=== PATIENT | male | born 1965 | race Caucasian/White ===

== ENCOUNTER 2017-01-12 11:12 | Inpatient (IN) | payer OTHER ==
[~2017-01-12] VITALS: Ht 177.8 cm; Wt 113.9 kg
[2017-01-12] VITALS (8 sets, daily range): BP systolic 148–160; BP diastolic 77–110
[~2017-01-12 11:12] MED LIST: METFORMIN HCL500 M3 PO; METHADONE HCL5 MG PO; NICOTINE LOZENGE4 MG PO; XANAX0.5 M1 PO
--- NOTE | 2017-01-12 11:28 | ED PSYCHIATRIC COMPLAINT ---
See Addendum History of Present Illness General Chief Complaint: ETOH/Drug Related Complaint Stated Complaint: ETOH,DEPRESSED Source: patient, old records Exam Limitations: no limitations Vital Signs & Intake/Output Vital Signs & Intake/Output Vital Signs Date Time Temp Pulse Resp B/P Pulse O2 O2 Flow FiO2 Ox Delivery Rate 01/13 0904 74 140/78 01/13 0609 97.9 66 20 142/70 93 01/13 0600 97.9 66 18 142/70 01/13 0404 97.2 61 20 140/100 94 01/13 0400 97.2 61 18 140/100 01/13 0230 97.9 69 18 140/87 01/13 0201 97.9 69 20 140/87 92 Room Air 01/13 0200 97.9 69 18 140/87 01/13 0157 150/98 01/13 0000 98.5 68 18 160/98 01/12 2356 98.5 68 20 160/98 94 01/12 2246 97.8 88 20 150/110 94 Room Air 01/12 2200 97.7 92 18 150/110 01/12 2130 97.7 92 20 158/90 01/12 2115 97.7 92 20 158/90 96 Room Air 01/12 1919 97.5 84 20 160/80 01/12 1919 97.5 84 20 160/80 95 Room Air 01/12 1718 98.8 93 18 160/98 01/12 1718 98.8 93 18 160/98 95 Room Air 01/12 1505 98.8 78 18 149/96 95 Room Air 01/12 1504 98.8 78 18 149/96 01/12 1314 98.8 88 18 148/77 01/12 1313 98.6 88 18 148/77 95 Room Air 01/12 1124 97.0 90 20 163/97 94 Room Air ED Intake and Output 01/13 0000 01/12 1200 Intake Total 120 Output Total Balance 120 Intake, Oral 120 Patient 252 lb 280 lb Weight Allergies Coded Allergies: NO KNOWN ALLERGIES (06/04/12) Triage Note: PT REQUESTS DETOX FROM ETOH AND STATES HE IS VERY DEPRESSED. PT DENIES SI/HI. PT STATES HE IS IN A BAD WAY, CAN'T SLEEP AND IS HAVING PANIC ATTACKS. STATES DRINKING A FIFTH OF [place] A DAY Triage Nurses Notes Reviewed? yes Onset: Gradual Duration: worse persistent since (2.5 month) Timing: recent history Severity: severe Severity Numbers: 10 Associated Symptoms: anxiety, impaired concentration, insomnia HPI: Patient is a 51-year-old male with history of alcohol abuse presenting to the emergency department with chief complaint of increasing depression, increasing alcohol use in the past 2 months. He reports prior to the past 2 and half months he was clean for 13 months. He wants detox again in to get back on track. He was going to Employee Benefit Plans meetings but slowly stopped and started drinking heavily. Denies any suicidal or homicidal ideation. He does report increased anxiety where he wakes up in the night and paces. If he doesn't drink alcohol daily he gets anxious and tremulous. He is to drink as soon as he wakes up in the morning to function. He drinks about a fifth of hard alcohol daily now. It started off with just a few beers here and there and has gotten to this point. He would like help. He feels like he is feeling his family members. Remote history of withdrawal seizure 10 years ago. The last time he was admitted for alcohol detox was approximately 2 years ago. He also reports that he stopped taking his Paxil about 2-1/2 months ago and noticed increased depression since then. Denies any hallucinations. Denies any drug use besides alcohol. He reports that his depression has gotten so bad that he stopped grooming himself and is unable to perform activities of daily living over the past week or so. (FELISHA BOBBY,CHASIDY) Reconcile Medications Alprazolam (Xanax) 0.5 MG TABLET 1 TAB PO BID PRN ANXIETY (Reported) Amlodipine Besylate 5 MG TABLET 1 TAB PO DAILY HTN (Reported) Lisinopril 40 MG TABLET 1 TAB PO DAILY BP (Reported) Metformin HCl 500 MG TABLET 1 TAB PO BID DM (Reported) Methadone HCl (Unknown Strength) TABLET (Unknown Dose) PO DAILY MENTAL HEALTH (Reported) Nicotine Polacrilex (Nicotine Lozenge) 4 MG LOZENGE 1 RENÉ PO AD PRN SMOKING CESSATION (Reported) Pantoprazole Sodium 40 MG TABLET.DR 1 TAB PO DAILY GERD (Reported) Paroxetine HCl (Paxil) 40 MG TABLET 1 TAB PO DAILY DEPRESSION (Reported) (JORDAN MIRANDA,BEBETO) Past History Travel History Traveled to [place] past 21 day No Medical History Any Pertinent Medical History? see below for history Cardiovascular: hypertension Endocrine: diabetes History of MRSA: No History of VRE: No History of CDIFF: No Surgical History Surgical History: non-contributory Psychosocial History What is your primary language Panamanian Tobacco Use: Current Daily Use Daily Tobacco Use Amount/Type: => 5 Cigarettes daily ETOH Use: heavy use Illicit Drug Use: denies illicit drug use Family History Hx Contributory? No (CHASIDY BAUTISTA) Review of Systems Review of Systems Constitutional: Reports: malaise. Comments Review of systems: See HPI, All other systems negative. Constitutional, no chills fever or weight loss HEENT: No visual changes no sore throat no congestion Cardiovascular: No chest pain ,palpitation Skin, no jaundice no rashes Respiratory: No dyspnea cough sputum or hemoptysis GI: No nausea no vomiting : No dysuria No hematuria Muscle skeletal: no back pain, no neck pain, Neurologic: No numbness no confusion, no headaches Psych: Positive stress, anxiety and depression Heme/endocrine: No bruising no bleeding no polyuria or polydipsia Immunology: No splenectomy or history of AIDS (CHASIDY BAUTISTA) Physical Exam Physical Exam General Appearance: well developed/nourished, no apparent distress, alert, awake , comfortable Neurological/Psychiatric: oriented x 3 Comments: Well-developed well-nourished person in no acute distress HEENT: Pupils equally round and reactive to light and accommodation. Nose is atraumatic. Neck: Normal inspection Back: Nontender Cardiovascular: Regular rate and rhythms no murmurs rubs or gallops, normal JVP Respiratory: Chest nontender. No respiratory distress.breath sounds clear to auscultation bilaterally Abdomen: Obese Extremity: No edema Neuro: Alert oriented x3 Skin: No appreciable rash on exposed skin, skin is warm and dry. Psych: Depressed mood, cooperative SAD PERSONS Done? patient not suicidal (CHASIDY BAUTISTA) Progress Differential Diagnosis: drug intoxication, polysubstance abuse, alcohol abuse, liver failure, major depressive disorder Plan of Care: Orders Procedure Date/time Status Regular Diet 01/13 B Active US-COMPLETE ABDOMEN 01/13 0800 Active XRY-CHEST XRAY, PA AND LATERAL 01/13 0800 Active LOWER RESPIRATORY CULTURE 01/13 0700 Active MAGNESIUM 01/13 0600 Complete HEPATIC FUNCTION PANEL 01/13 06 Complete CBC WITHOUT DIFFERENTIAL 01/13 0600 Complete BASIC ELECTROLYTES PLUS BUN&CR 01/13 0600 Complete Seizure Precautions 01/13 UNK Active Consistent Carbohydrate 1 01/12 D Complete CULTURE,URINE 01/12 2338 Active URINALYSIS 01/12 2338 Complete Pathway - chart 01/12 2301 Active Pathway - chart 01/12 2300 Active House Staff 01/12 2300 Active Patient Data 01/12 2300 Active Code Status 01/12 2300 Active Lab Add-on Test 01/12 2258 Active Vital Signs 01/12 2227 Active Teach/Educate 01/12 2227 Active Nutritional Intake, Monitor 01/12 2227 Active Isolation 01/12 2227 Active Intake & Output 01/12 2227 Active Patient Care Conference 01/12 2227 Active Activity/Ambulation 01/12 2227 Active Saline Lock 01/12 2012 Active Misc Message 01/12 2012 Active ED Holding Orders 01/12 2012 Active Vital Signs 01/12 2012 Active Code Status 01/12 2012 Complete Admit to inpatient 01/12 2011 Active Patient Data 01/12 1941 Active Intake & Output 01/12 1315 Active ED CRISIS PSYCH CONSULT 01/12 1230 Active PHOSPHORUS 01/12 1203 Complete MAGNESIUM 01/12 1203 Complete CIWA 01/12 1146 Active URINE DRUG SCREEN FOR ER ONLY 01/12 1128 Complete TSH REFLEX 01/12 1128 Complete ETHANOL 01/12 1128 Complete COMPREHENSIVE METABOLIC PANEL 01/12 1128 Complete CBC WITHOUT DIFFERENTIAL 01/12 1128 Complete VTE Mechanical Prophylaxis 01/12 UNK Active FingerStick- Glucose 01/12 UNK Active Current Medications Sig/Marshall Start time Last Medication Dose Stop Time Status Admin Insulin Aspart 0 TIDAC 01/13 0800 AC (NovoLOG) Sodium Chloride 1,000 ML Q10H 01/13 0145 AC (Normal Saline 0.9%) Laboratory Tests 01/13/17 0705: Anion Gap 11, Estimated GFR > 60, BUN/Creatinine Ratio 25.0, Magnesium 1.9, Total Bilirubin 0.9, Direct Bilirubin 0.4, AST 68 H, ALT 69, Alkaline Phosphatase 55, Total Protein 7.1, Albumin 4.0, CBC w Diff NO MAN DIFF REQ, RBC 3.98 L, MCV 92.0, MCH 31.5 H, RDW 13.9, MPV 9.1, Gran % 54.9, Lymphocytes % 33.0, Monocytes % 9.0, Eosinophils % 2.7, Basophils % 0.4, Absolute Granulocytes 2.1, Absolute Lymphocytes 1.3, Absolute Monocytes 0.3, Absolute Eosinophils 0.1, Absolute Basophils 0, PUBS MCHC 34.2 01/12/17 1203: Anion Gap 16, Estimated GFR > 60, BUN/Creatinine Ratio 21.3, Glucose 125 H, Calcium 10.0, Phosphorus 4.3, Magnesium 1.5 L, Total Bilirubin 0.5, AST 74 H, ALT 76 H, Alkaline Phosphatase 60, Total Protein 8.3 H, Albumin 4.8, Globulin 3.5, Albumin/Globulin Ratio 1.4, TSH &T3 &Free T4 Intrp 2.530, CBC w Diff NO MAN DIFF REQ, RBC 4.47 L, MCV 91.9, MCH 31.2 H, RDW 13.6, MPV 8.5, Gran % 60.4, Lymphocytes % 30.8, Monocytes % 7.2, Eosinophils % 1.2, Basophils % 0.4, Absolute Granulocytes 3.6, Absolute Lymphocytes 1.8, Absolute Monocytes 0.4, Absolute Eosinophils 0.1, Absolute Basophils 0, PUBS MCHC 33.9, Serum Alcohol 157.0 01/12/17 1153: Urine Opiates Screen < 100.00, Methadone Screen > 735 H, Barbiturate Screen < 60, Ur Phencyclidine Scrn < 6.00, Amphetamines Screen < 100, U Benzodiazepines Scrn 94, Urine Cocaine Screen < 50, Urine Cannabis Screen < 5.00, Urine Color STRAW, Urine Clarity CLEAR, Urine pH 6.0, Ur Specific [place] <= 1.005, Urine Protein NEG, Urine Ketones NEG, Urine Nitrite NEG, Urine Bilirubin NEG, Urine Urobilinogen 0.2, Ur Leukocyte Esterase NEG, Ur Microscopic EXAM NOT REQUIRED, Urine Hemoglobin NEG, Urine Glucose NEG Microbiology 01/13 0700 LOWER RESP: Respiratory Culture - ORD 01/13 0700 LOWER RESP: Gram Stain - ORD 01/12 115 URINE ROUT: Urine Culture - RECD Comments: Patient will be set up for outpatient treatment for depression. Patient will be admitted for alcohol detox/withdrawal. Patient scored a CIWA score of 11 most recently. Requiring multiple doses of by mouth Ativan. Patient meets criteria for inpatient detox secondary to history of withdrawal seizures. (FELISHA BOBBY,CHASIDY) Departure Departure Time of Disposition: 1932 Disposition: STILL A PATIENT Condition: Stable Clinical Impression Primary Impression: Alcohol withdrawal Qualifiers: Complication of substance-induced condition: uncomplicated Qualified Code: F10.230 - Alcohol dependence with withdrawal, uncomplicated Referrals: SIOMARA RUSH DO (PCP/Family) Departure Forms: Customer Survey General Discharge Information Admission Note Spoke With: NIK GILLESPIE MD Documentation of Exam: Documentation of any treatments & extenuating circumstances including Concerns Regarding Discharge (functional status, medication knowledge or non-compliance, living conditions, etc.) that warrant an admission rather than observation: Patient requiring several doses of by mouth Ativan, CIWA score,HX OF withdrawal seizures meets criteria according to detox protocol for medical admission. Discharge at this time would likely be harmful, could LEAD TO withdrawal seizures. (CHASIDY BAUTISTA) PA/CHANNELER OUTSOLE Co-Sign Statement Statement: ED Attending supervision documentation- [x] I saw and evaluated the patient. I have also reviewed all the pertinent lab results and diagnostic results. I agree with the findings and the plan of care as documented in the PA's/CHANNELER OUTSOLE's documentation. [x] I have reviewed the ED Record and agree with the PA's/CHANNELER OUTSOLE's documentation. [] Additions or exceptions (if any) to the PAs/CHANNELER OUTSOLE's note and plan are summarized below: [] (JORDAN MIRANDA,BEBETO) Critical Care Note Critical Care Note Critical Care Time: 30-74 min (CHASIDY BAUTISTA)
[2017-01-12 12:15] LABS: ABSOLUTE BASOPHIL COUNT 0 /CUMM (0.0-0.2); ABSOLUTE EOSINOPHIL COUNT 0.1 /CUMM (0.0-0.7); ABSOLUTE GRANULOCYTE CT 3.6 /CUMM (1.4-6.5); ABSOLUTE LYMPH COUNT 1.8 /CUMM (1.2-3.4); ABSOLUTE MONOCYTE COUNT 0.4 /CUMM (0.10-0.60); BASOPHIL % 0.4 % (0.0-2.0); EOSINOPHIL % 1.2 % (0-5); GRANULOCYTE % 60.4 % (42.2-75.2); HEMATOCRIT 41.1 % (42-52); MEAN CORPUSCULAR HGB 31.2 PG (27.0-31.0); MEAN CORPUSCULAR HGB CONC 33.9 G/DL (33.0-37.0); MEAN CORPUSCULAR VOLUME 91.9 FL (80.0-94.0); MEAN PLATELET VOLUME 8.5 FL (7.4-10.4); PLATELET COUNT 151 /CUMM (130-400); RBC DISTRIBUTION WIDTH 13.6 % (11.5-14.5); RED BLOOD CELL CT 4.47 /CUMM (4.70-6.10); WHITE BLOOD CELL COUNT 5.9 /CUMM (4.8-10.8)
[2017-01-12] MEDS ORDERED: LISINOPRIL40 M1 PO (13:17)
[2017-01-12] MEDS ORDERED: PAXIL40 M1 PO (13:17)
[2017-01-12] MEDS ORDERED: PANTOPRAZOLE SO40 M1 PO (13:18)
--- NOTE | 2017-01-12 19:29 | ED PSYCH CRISIS CONSULTATION ---
Crisis Consult Basic Assessment Date of Consult: 01/12/17 Responsible Person/Accompanied By: Brought in by cousin. Lives w/ 21 yo son. Insurance Authorization: Insurance #1: Insurance name: ALEXANDRA FLYNN Phone number: Policy number: [id number] Group number: [id number] Authorization number: ED Provider: Patient's ED Provider: CHASIDY BAUTISTA Primary Care Physician: Patient's PCP: SIOMARA RUSH DO PCP's Current Psychiatrist: Carolyn Mathis MD Chief Complaint: Alcohol Use Disorder / Depression Patient's Quote: "Stopped taking my medication 2 monthsago...Drink a 1/5 a day. " Present Illness: Patient is a 51 year old male who presents with recent increase in alcohol use and long standing concerns of depression / anxiety. 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 Patient resides with his 21 y/o son. Patient reports he achieved sobriety after an inpatient psychiatric admission in 2013 - patient discharged from [facility] sucessfully and maintained by attending AA meetings w/ a sponsor. Patient also was motivated to maintain sobriety during the course of treatment for his hepatitis C infection with [facility] ([employer] Dr. Harpal Munguia) - pt. reports he is cured. Patient reports one seizure from alcohol withdrawal ~13 years ago. Patient relapsed ~ 2 1/2 months ago and cites the "holidays" and thoughts of his as triggers to relapse. Patient denies ever being treated with traditional psychotherapy or counseling after the sudden of his . Patient was incarcerated ~13 years ago. Patient reports drinking as much as 750 mL of alcohol per day. Patient urine toxicology screen reviewed - positive for methadone which is prescribed and administered by [facility] in [place], [place]. Patient is also prescribed Xanax for anxiety by Dr. Mathis. Pt. reports on a scale of 1-10 his depression is ~9. Pt. states anxiety is "through the roof." Patient denies any high risk factors (suicidal ideation, homicidal ideation, psychosis). Patient presents alert, euthymic, and oriented. He was observed to be sweating and reports a feeling of fullness in his abdomen. Patient identified positive supports including his son, a cousin, and extended family. Patient is currently an active patient of psychiatrist Dr. Mathis. Pt. does not meet criteria for an inpatient psychiatric admission. Spoke to patient's son, Noble Dash Jr. . Jr. Noble states the patient "needs help and I want him to get better." Noble reports the patient is depressed at times, but he does not have any concerns that the patient is suicidal. Noble Long reports the patient drinks every day and has increased the volume of his drinking since being laid off. Jr. Noble states that "he hopes his father gets the help he needs." Patient's Address: [address] [place] [address] Other Phone Number: Who Do You Live With? Son Family/Informants Interviewed: Son - Noble Dash Jr. [phone] ( [phone] 3 [phone] 4 4 [phone] 3 [phone] 6 Resides with patient. Allergies - Coded Allergies: NO KNOWN ALLERGIES (06/04/12) Current Medications - Scheduled Medications Lisinopril 40 MG TABLET 1 TAB PO DAILY BP (Reported) Entered as Reported by ALMITA GREENE on 01/12/17 1317 Metformin HCl 500 MG TABLET 1 TAB PO BID DM (Reported) Entered as Reported by JINA ZAMBRANO on 08/14/14 1614 Methadone HCl (Unknown Strength) TABLET (Unknown Dose) PO DAILY MENTAL HEALTH (Reported) Entered as Reported by JINA ZAMBRANO on 08/14/14 1617 Pantoprazole Sodium 40 MG TABLET.DR 1 TAB PO DAILY GERD (Reported) Entered as Reported by ALMITA GREENE on 01/12/17 1318 Paroxetine HCl (Paxil) 40 MG TABLET 1 TAB PO DAILY DEPRESSION (Reported) Entered as Reported by ALMITA GREENE on 01/12/17 1317 Scheduled PRN Medications Alprazolam (Xanax) 0.5 MG TABLET 1 TAB PO BID PRN ANXIETY (Reported) Entered as Reported by JINA ZAMBRANO on 08/14/14 1617 Nicotine Polacrilex (Nicotine Lozenge) 4 MG LOZENGE 1 RENÉ PO AD PRN SMOKING CESSATION (Reported) Entered as Reported by JINA ZAMBRANO on 08/14/14 1616 Laboratory Results: Laboratory Tests 01/12/17 1203: Anion Gap 16, Estimated GFR > 60, BUN/Creatinine Ratio 21.3, Glucose 125 H, Calcium 10.0, Total Bilirubin 0.5, AST 74 H, ALT 76 H, Alkaline Phosphatase 60 , Total Protein 8.3 H, Albumin 4.8, Globulin 3.5, Albumin/Globulin Ratio 1.4, TSH &T3 &Free T4 Intrp 2.530, CBC w Diff NO MAN DIFF REQ, RBC 4.47 L, MCV 91.9, MCH 31.2 H, RDW 13.6, MPV 8.5, Gran % 60.4, Lymphocytes % 30.8, Monocytes % 7.2 , Eosinophils % 1.2, Basophils % 0.4, Absolute Granulocytes 3.6, Absolute Lymphocytes 1.8, Absolute Monocytes 0.4, Absolute Eosinophils 0.1, Absolute Basophils 0, PUBS MCHC 33.9, Serum Alcohol 157.0 01/12/17 1153: Urine Opiates Screen < 100.00, Methadone Screen > 735 H, Barbiturate Screen < 60, Ur Phencyclidine Scrn < 6.00, Amphetamines Screen < 100, U Benzodiazepines Scrn 94, Urine Cocaine Screen < 50, Urine Cannabis Screen < 5.00 Past History Past Medical History Any Pertinent Medical History? 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 Patient has recent sobriety and is knowledgable on strategies to abstain from alcohol. Patient is motivated to engage in treatment. Physical Limitations (Interventions): None indicated. Psychiatric Treatment History Psych Treatment Psychiatric Treatment Yes Inpatient Treatment Yes Outpatient Treatment Yes Location of Treatment [facility] - inpatient and IOP Reason for Treatment Alcohol use disorder Dates of Treatment 2014 Response to Treatment Positive Diagnosis by History: Alcohol dependence, Alcohol withdrawal, Opioid dependence, Anxiety disorder, Hepatitis C Substance Use/Abuse History Drug Use/Abuse Substances Used/Abused Yes Substance Used/Abused Heroin First Use ~20 years ago per patient report Last Used ~13 years ago How much used/taken Unspecified How often Unknown For how long 7 years Route of use Intravenous Substance Abuse Treatment Substance Abuse Treatment Past Substance Abuse [place] No Inpatient Treatment No Outpatient Treatment No Location of Treatment Patient denies Reason for Treatment Patient denies Dates of Treatment Patient denies Response to Treatment Patient denies Comments: - Current Mental Status Mental Status Orientation: Person, Place, Situation Affect: WNL Speech: WNL Neuro-vegetative: Loss of Interest, Sleep Disturbance Appearance Appearance- Dress/Hygiene: Patient dressed in hospital attire, appears well groomed, with only remarkable feature being a visible tattoo on left arm. Behaviors Thought Process: WNL Thought Content: WNL Memory: WNL Insight: WNL SI/HI Risk Assessment Past Suicidal Ideation/Attempts No (Patient denies) Current Suicidal Ideation/Att No (Patient denies.) Past Homicidal Ideation/Att: No (Patient denies) Current Homicidal Ideation/Attempts No (Patient denies. ) Degree of Intent: None (Patient denies) Danger To: Not indicated Gravely Disabled: Not indicated Risk Factors: high anxiety/distress, substance abuse, poor impulse control, male Lethality Ratin (mild) PTSD Checklist PTSD Done? patient declined ED Management Sitter: Yes Restraints: No DSM5/PS Stressors/Medical Prob Diagnosis' (DSM 5, Stressors, Medical): F10.20 Alcohol use disorder, Severe F32.9 Unspecified depressive disorder F41.9 Unspecified anxiety disorder Current GAF: 40 Comments: Recent unemployment Departure Disposition Psych Medical Clearance Date: 01/12/17 Medically Cleared at: 1830 Time Started: 1829 Time Ended: 1929 Psychiatrist Consulted: Dom Schneider MD PHD Date Disposition Established: 01/12/17 Time Disposition Established: 1929 Plan for Disposition - Modality: Attending in ED will determine medical disposition Facility: Patient to Arrange Rationale for Disposition: Patient is cleared for discharge. Attending PA will determine medical disposition. If patient is discharged from ED, he is advised to follow-up with a local detox facility or outpatient susbtance use program. Patient crisis evaluation reviewed with on-call psychiatrist Dr. Schneider. Patient does not meet criteria at this time for a psychiatric inpatient admission. Referrals SIOMARA RUSH DO (PCP/Family)
--- NOTE | 2017-01-12 19:54 | History & Physical ---
HIEN MIRANDA,[facility] 01/12/171953: General Information and HPI MD Statement: I have seen and personally examined ERICK DASH SR and documented this H& P. The patient is a 51 year old M who presented with a patient stated chief complaint of alcohol abuse. Source of Information: patient, family, old records Exam Limitations: no limitations History of Present Illness: 51 M PMH EtOH abuse, IVDU on methadone, NIDDM, HCV+ (recently completed [facility] treatment) and anxiety who presented to the emergency department [facility] requesting help with alcohol detoxification. The patient has an extensive alcohol use however has abstained from alcohol for approximately 13 months. The patient recently started drinking alcohol again (approximately 3 months ago) . Patient consumes approximately 30 nips of Luis Fernando Beam on a daily basis. Patient also reports abdominal distention and significant weight gain. He also reports that failure to have alcohol on daily basis elicits severe withdrawal effects, where by he becomes diaphoretic and experiences bilatteral upper extremity tremors. His last alcoholic drink was on 01/12/2017. The patient does also report of a history of previous seizures related to alcohol withdrawal. Owing to the decrease compliance of his Paxil (due to interactions with Alcohol) . The patient has continued to get more more depressed and states that his activities of daily living have been affected. 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 Patient denies any suicidal and/or homicidal ideation. He lives at home and endorses good support network. Allergies/Medications Allergies: Coded Allergies: NO KNOWN ALLERGIES (06/04/12) Compliance With Home Meds: UNKNOWN Past History Travel History Traveled to [place] past 21 day No Medical History Cardiovascular: hypertension Endocrine: diabetes History of MRSA: No History of VRE: No History of CDIFF: No Surgical History Surgical History: non-contributory Past Family/Social History Psychosocial History Where do you live? Home Who Do You Live With? spouse Services at Home: None Primary Language: Lao Smoking Status: Current Some Day Smoker ETOH Use: heavy use Illicit Drug Use: denies illicit drug use Functional Ability ADLs Independent: dressing, eating, toileting, bathing. Ambulation: independent IADLs Independent: shopping, housework, finances, food prep, telephone, transportation , medication admin. 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 Cardiovascular: Denies: chest pain, edema, orthopena. Respiratory: Reports: cough, sputum production (Gre). Denies: hemoptysis, orthopnea, short of breath. GI: Reports: abdominal pain, bloating, distention. Denies: constipation, diarrhea, bowel incontinence. Genitourinary: Reports: frequency (Polyuria). Denies: discharge, dysuria, hematuria. Musculoskeletal: Denies: back pain, gout, joint pain, joint swelling. Neurological/Psychological: Reports: anxiety, depressed, tremors. Denies: dementia, emotional problems. Exam & Diagnostic Data Last 24 Hrs of Vital Signs/I&O Vital Signs Date Time Temp Pulse Resp B/P Pulse O2 O2 Flow FiO2 Ox Delivery Rate 01/12 2246 97.8 88 20 150/110 94 Room Air 01/12 2200 97.7 92 18 150/110 01/12 2130 97.7 92 20 158/90 01/12 2115 97.7 92 20 158/90 96 Room Air 01/12 1919 97.5 84 20 160/80 01/12 1919 97.5 84 20 160/80 95 Room Air 01/12 1718 98.8 93 18 160/98 01/12 1718 98.8 93 18 160/98 95 Room Air 01/12 1505 98.8 78 18 149/96 95 Room Air 01/12 1504 98.8 78 18 149/96 01/12 1314 98.8 88 18 148/77 01/12 1313 98.6 88 18 148/77 95 Room Air 01/12 1124 97.0 90 20 163/97 94 Room Air Intake & Output 01/12 1600 01/12 0800 01/12 0000 Intake Total Output Total Balance Patient 127.006 kg Weight Physical Exam General Appearance Alert, Oriented X3, Cooperative HEENT Atraumatic, PERRLA, Bronze discolorated Skin Neck Supple Lymphatic Cervical nl Cardiovascular Regular Rate, Normal S1, Normal S2, No Murmurs Lungs Increased Expiratory Breath Sounds Abdomen Normal Bowel Sounds, Soft, No Tenderness, Distended, Spider Anigomas Present , Gynecomastia Neurological Normal Speech, Strength at 5/5 X4 Ext, Normal Tone, Cranial Nerves 3-12 NL Extremities Edema 2+ Last 24 Hrs of Labs/Diallo: Laboratory Tests 01/12/17 1203: Anion Gap 16, Estimated GFR > 60, BUN/Creatinine Ratio 21.3, Glucose 125 H, Calcium 10.0, Phosphorus 4.3, Magnesium 1.5 L, Total Bilirubin 0.5, AST 74 H, ALT 76 H, Alkaline Phosphatase 60, Total Protein 8.3 H, Albumin 4.8, Globulin 3.5, Albumin/Globulin Ratio 1.4, TSH &T3 &Free T4 Intrp 2.530, CBC w Diff NO MAN DIFF REQ, RBC 4.47 L, MCV 91.9, MCH 31.2 H, RDW 13.6, MPV 8.5, Gran % 60.4, Lymphocytes % 30.8, Monocytes % 7.2, Eosinophils % 1.2, Basophils % 0.4, Absolute Granulocytes 3.6, Absolute Lymphocytes 1.8, Absolute Monocytes 0.4, Absolute Eosinophils 0.1, Absolute Basophils 0, PUBS MCHC 33.9, Serum Alcohol 157.0 01/12/17 1153: Urine Opiates Screen < 100.00, Methadone Screen > 735 H, Barbiturate Screen < 60, Ur Phencyclidine Scrn < 6.00, Amphetamines Screen < 100, U Benzodiazepines Scrn 94, Urine Cocaine Screen < 50, Urine Cannabis Screen < 5.00 Microbiology 01/12 2338 URINE ROUT: Urine Culture - ORD Diagnostic Data EKG Results No EkG Assessment/Plan Assessment: This is a 51 year old gentleman with extensive medical history includin IVDU ( now on methadone) and hepatitis C as well as extensive depression and alcohol use who presented to the emergency department requesting alcohol detoxification. #Alcohol detoxification Begin patient on CIWA protocol. Ativan scheduled IV 2 mg every 6. Folic acid and thiamine. Frequent reorientation. Social Consultation #Diabetes Patient is normally on metformin at home. Begin the patient on sliding scale insulin. Hemoglobin A1c in a.m. for long-term glycemic control. If blood sugars remain uncontrollable consider endocrinology consultation. #Cough Patient did reports of cough, likely chornic 2/2 smoking. Lower respiratory cultures. PA chest x-ray in a.m. to rule out aspiration pneumonia versus intra-pulmonary pathology. #Hypertension Continue home medications of amlodipine 5mg and lisinopril 40 mg. #Abdominal Distention On physical exam was difficult to elicit any fluid in the abdomne. An abdominal ultrasound has been ordered for the morning to rule out worsening ascites. PO PPI Likely will need a GI consult as outpatient. #Opiate Dependance Methadone 70 mg Daily. Confirm dose in am. #Code Full code #DVT Lovenox As Ranked By This Provider Problem List: 1. Depression 2. Diabetes 3. Alcohol withdrawal Qualifiers Complication of substance-induced condition: uncomplicated Qualified Code: F10.230 - Alcohol dependence with withdrawal, uncomplicated 4. Opiate dependence 5. EtOH dependence Core Measures/Miscellaneous Acute Coronary Syndrome ACS Diagnosis: No Cerebrovascular Accident CVA/TIA Diagnosis: No Congestive Heart Failure CHF Diagnosis: No Venous Thromboembolism VTE Risk Factors: Age > 40 VTE Prophylaxis Ordered Inpt: Pharm- Lovenox No Mech VTE prophylaxis d/t: No contraindications No VTE Pharm Prophylaxis d/t: No contraindications VTE Diagnosis: No VTE Type: NONE VTE Confirmed by (Test): NONE Severe Sepsis Severe Sepsis Present: No Septic Shock Septic Shock Present: No Miscellaneous Documentation Attending Case Discussed With: NIK GILLESPIE MD Primary Care Physician: SIOMARA RUSH DO Patient sees these Specialists NA Level of Patient Care: General Medicine NIK GILLESPIE 01/13/17 0310: General Information and HPI Allergies/Medications Home Med list Alprazolam (Xanax) 0.5 MG TABLET 1 TAB PO BID PRN ANXIETY (Reported) Amlodipine Besylate 5 MG TABLET 1 TAB PO DAILY HTN (Reported) Lisinopril 40 MG TABLET 1 TAB PO DAILY BP (Reported) Metformin HCl 500 MG TABLET 1 TAB PO BID DM (Reported) Methadone HCl (Unknown Strength) TABLET (Unknown Dose) PO DAILY MENTAL HEALTH (Reported) Nicotine Polacrilex (Nicotine Lozenge) 4 MG LOZENGE 1 RENÉ PO AD PRN SMOKING CESSATION (Reported) Pantoprazole Sodium 40 MG TABLET.DR 1 TAB PO DAILY GERD (Reported) Paroxetine HCl (Paxil) 40 MG TABLET 1 TAB PO DAILY DEPRESSION (Reported) Attending MD Review Statement Attending Statement Attending MD Statement: examined this patient, discuss w/resident/PA/TICKET PULLER, agreed w/resident/PA/TICKET PULLER, reviewed EMR data (avail), reviewed images, amended to note Attending Assessment/Plan: Cc: alcohol detox PMH: DM, HTN, anxiety, depression, alcoholism, history of alcohol withdrawal seizures, history of hep C S/P [employer] treatment, 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 Patient came to ER with chief complaint of worsening depression, increasing alcohol use in the past 2 months. His previous attempt off abstinence from alcohol lasted for 13 months, was going to AA meetings. He requests detox again. 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 He drinks about a fifth of hard alcohol daily now. He stopped taking his Paxil about 2-1/2 months ago. He had cough for 3 months which is improving now. He denies any suicidal or homicidal ideation, hallucinations, blood in vomiting or stool. Vitals: Afebrile, HR, RR, BP, O2 saturation acceptable range. On examination a O neck supple, CVS: S1-S2 RRR. RS: Clear to auscultate bilaterally. Abdomen: obese , nontender, no fluid thrill, bowel sounds present. Trace pitting edema lower extremity. No focal neurological deficit. Labs: CBC, BMP unremarkable. AST 74, ALT 76, albumin 4.8, U tox positive for methadone, alcohol level 157 A and P #1 alcohol withdrawal: Continue scheduled and when necessary Ativan according to CIWA score, replace nutrition folic acid thiamine. Continue gentle hydration, psych consult in morning #2 DM: Continue sliding scale short-acting insulin. Accu-Cheks before meals and at bedtime. #3 HTN: Continue lisinopril and amlodipine. #4 opiate dependence: Continue methadone after confirming the dose. #5 obtain ultrasound of abdomen to rule out ascites, chest x-ray PA lateral view patient has chronic cough. VANDANA WATTS 01/13/17 0500: Resident Review Statement Resident Statement: examined this patient, discussed with credit intern, agreed with credit intern, reviewed EMR data (avail), discussed with nursing, reviewed images Other Findings: Mr Dash is a 51-year-old [place] gentleman with a PMH of HTN, DM , GERD, tobacco dependence (1 PPD for 20 years), hep C recently completed Kianna, depression, EtOH dependence who presents for alcohol detox. He mentions that he was abstinent from alcohol for over 13 months, completed hep C treatment approximately 5 months ago, stopped taking his antidepressant toe and a half months ago around which time he started drinking again. 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 He reports significant generalized body tremors, occasional visual hallucinations (shadows), self-neglect, nausea and vomiting over the past 2 days , intermittent morrison colored stools, productive cough with green sputum and over 35lb weight gain primarily around the torso the past 1 month. VS on admission: BP 163/93, HR 90, RR 20, SPO2 94% on RA, T 97.0 Physical exam: AAO, in no acute distress, slightly tremulous. RRR, normal S1/ S2. Lungs CTA BL. Diminished bowel sounds, significantly distended abdomen, negative thrill, evidence of caput medusa. Pertinent labs: WBC 5.9, H&H 13.9/41.1, platelets 151, sodium 141, potassium 4.1 , BUN/CR 17/0.8 AST/ALT: 74/76 Magnesium 1.5 Problem list: 1. EtOH withdrawal 2. Elevated blood pressure 3. Hypomagnesemia 4. Depression 5. Abdominal distention 6. Tobacco dependence 7. Diabetes 8. Previous heroin abuse, currently on methadone Plan: * Admit to general medicine floor * Ativan per serial protocol. Seizure precautions. Banana bag 1, normal saline * Elevated blood pressure is likely exacerbated by withdrawal symptoms. Will give home dose of amlodipine early * Hypomagnesemia: We'll replete mag sulfate IV 2, recheck in the a.m. * Patient self discontinued previous medication Paxil 40 mg daily. Will defer starting at prior dose, discuss with psychiatry for recommendations of reinitiating this medication. Patient denies any suicidal or homicidal ideations at this time. Psych and social work consults in the a.m. * Continue methadone 70 mg daily * Follow-up sputum and urine cultures * Nicotine patch 21 mg * Diet: Regular * GI prophylaxis: Pantoprazole IV 40 mg daily * DVT prophylaxis: Lovenox 40 mg daily * CODE STATUS: Full code A.m. team: Follow-up abdominal ultrasound to assess for evidence of ascites/ cirrhosis
[2017-01-13] VITALS (10 sets, daily range): BP systolic 120–160; BP diastolic 70–100
[2017-01-13] MEDS ORDERED: AMLODIPINE BESYL5 M1 PO (01:41)
--- NOTE | 2017-01-13 03:11 | Admission Certification ---
Admission Certification Certification Statement - As attending physician, I certify that at the time of - admission, based on clinical presentation, severity of - symptoms, need for further diagnostic testing and - therapeutic interventions, and risk of adverse outcomes - without in-hospital treatment, in my clinical assessment, - this patient requires an acute hospital stay for a minimum - of two nights or longer. I have also considered psychsocial - factors such as support system, advanced age, financial - issues, cognitive issues, and failed out-patient treatments, - past re-admission history, safety of patient, and lack of - compliance as applicable. Specific rationale supporting this admission is: Alcohol detox
--- NOTE | 2017-01-13 08:23 | PN- Housestaff ---
CHRISTA MIRANDA,[facility] 01/13/17 08: Subjective Follow-up For: Alcohol detox Subjective: Patient is alert and oriented in no distress. Reprots abdominal distention and abdominal pain, denies nausea, vomiting or diarrhea. Denies chest pain, palpitation or SOB. Review of Systems Constitutional: Denies: chills, fever, weakness. EENTM: Reports: no symptoms. Cardiovascular: Reports: no symptoms. Respiratory: Reports: no symptoms. Gastrointestinal: Reports: no symptoms. Genitourinary: Reports: no symptoms. Musculoskeletal: Reports: no symptoms. Skin: Reports: no symptoms. Objective Last 24 Hrs of Vital Signs/I&O Vital Signs Date Time Temp Pulse Resp B/P Pulse O2 O2 Flow FiO2 Ox Delivery Rate 01/13 1425 97.2 92 20 120/78 96 01/13 0904 74 140/78 01/13 0609 97.9 66 20 142/70 93 01/13 0600 97.9 66 18 142/70 01/13 0404 97.2 61 20 140/100 94 01/13 0400 97.2 61 18 140/100 01/13 0230 97.9 69 18 140/87 01/13 0201 97.9 69 20 140/87 92 Room Air 01/13 0200 97.9 69 18 140/87 01/13 0157 150/98 01/13 0000 98.5 68 18 160/98 01/12 2356 98.5 68 20 160/98 94 01/12 2246 97.8 88 20 150/110 94 Room Air 01/12 2200 97.7 92 18 150/110 01/12 2130 97.7 92 20 158/90 01/12 2115 97.7 92 20 158/90 96 Room Air 01/12 1919 97.5 84 20 160/80 01/12 1919 97.5 84 20 160/80 95 Room Air 01/12 1718 98.8 93 18 160/98 01/12 1718 98.8 93 18 160/98 95 Room Air Intake & Output 01/13 1600 01/13 0800 01/13 0000 Intake Total 1720 750 120 Output Total 800 Balance 920 750 120 Intake, IV 1000 350 Intake, Oral 720 400 120 Output, Urine 800 Patient 114.305 kg Weight Physical Exam General Appearance: Alert, Oriented X3, Cooperative, No Acute Distress HEENT: Atraumatic, EOMI Neck: Supple Cardiovascular: Regular Rate, Normal S1, Normal S2, No Murmurs Lungs: Normal Air Movement Abdomen: Soft, No Tenderness, distension noted. Neurological: Normal Speech, Normal Tone Extremities: 1+ pitting edema on the distal lower extremities Vascular: Pulses Symmetrical Current Medications: Current Medications Sig/Marshall Start time Last Medication Dose Route Stop Time Status Admin Acetaminophen 650 MG Q6P PRN 01/12 2300 DC PO Amlodipine Besylate 5 MG DAILY 01/13 1000 AC 01/13 PO 0904 Cyanocobalamin/ 1 BAG ONCE ONE 01/13 0100 DC 01/13 Thiamine/Pyridoxine IV 01/13 0859 0451 Sodium Chloride 1,000 ML Enoxaparin Sodium 40 MG DAILY 01/13 1000 AC 01/13 SC 0905 Insulin Aspart 0 TIDAC 01/13 0800 AC 01/13 SC 1211 Lisinopril 40 MG DAILY 01/12 2345 AC 01/13 PO 0157 Lorazepam 2 MG Q6 01/12 2359 AC 01/13 PO 1211 Lorazepam 0 Q1P PRN 01/12 2345 AC 01/13 IV 1050 Lorazepam 0 .STK-MED ONE 01/12 1936 DC PO Lorazepam 2 MG ONCE ONE 01/12 1930 DC 01/12 PO 01/12 1931 1937 Lorazepam 0 .STK-MED ONE 01/12 1731 DC PO Lorazepam 2 MG ONCE ONE 01/12 1730 DC 01/12 PO 01/12 1731 1731 Lorazepam 0 .STK-MED ONE 01/12 1554 DC PO Magnesium Sulfate 1 GM ONCE ONE 01/13 0200 DC 01/13 N/A 1 UNIT IV 01/13 0359 0233 Magnesium Sulfate 1 GM ONCE ONE 01/13 0000 DC 01/13 N/A 1 UNIT IV 01/13 0159 0105 Melatonin 5 MG ONCE ONE 01/13 0230 DC 01/13 PO 01/13 0231 0227 Methadone HCl 70 MG DAILY 01/13 1000 AC 01/13 PO 0620 Nicotine 21 MG DAILY 01/13 1000 AC 01/13 TOP 0758 Oxycodone/ 1 TAB Q6P PRN 01/12 2300 DC Acetaminophen PO Oxycodone/ 2 TAB Q6P PRN 01/12 2300 DC Acetaminophen PO Pantoprazole Sodium 40 MG DAILY 01/13 1000 AC 01/13 IV 0904 Polyethylene Glycol 17 GM DAILY 01/13 1358 AC PO Senna 187 MG AT BEDTIME 01/13 2200 AC PO Sodium Chloride 1,000 ML Q10H 01/13 0145 AC 01/13 IV 1211 Last 24 Hrs of Lab/Diallo Results Last 24 Hrs of Labs/Mics: Laboratory Tests 01/13/17 0705: Anion Gap 11, Estimated GFR > 60, BUN/Creatinine Ratio 25.0, Magnesium 1.9, Total Bilirubin 0.9, Direct Bilirubin 0.4, AST 68 H, ALT 69, Alkaline Phosphatase 55, Total Protein 7.1, Albumin 4.0, CBC w Diff NO MAN DIFF REQ, RBC 3.98 L, MCV 92.0, MCH 31.5 H, RDW 13.9, MPV 9.1, Gran % 54.9, Lymphocytes % 33.0, Monocytes % 9.0, Eosinophils % 2.7, Basophils % 0.4, Absolute Granulocytes 2.1, Absolute Lymphocytes 1.3, Absolute Monocytes 0.3, Absolute Eosinophils 0.1, Absolute Basophils 0, PUBS MCHC 34.2 Microbiology 01/13 07 LOWER RESP: Respiratory Culture - COLB 01/13 700 LOWER RESP: Gram Stain - COLB Assessment/Plan Assessment: This is a 51 year old gentleman with extensive medical history including IVDU ( now on methadone) and hepatitis C as well as extensive depression and alcohol use who presented to the emergency department requesting alcohol detoxification. Alcohol withdrawal * Ativan per CIWA protocol. Ativan scheduled IV 2 mg every 6, taper according to CIWA scores * folic acid and thiamine * gentle hydration * social consult on sunday Diabetes Patient is normally on metformin at home. * now on sliding scale insulin. * accuchecks before meals and at bedtime Hypertension * Continue home medications of amlodipine and lisinopril Chronic cough denies SOB, reports sputum production * CXR PA and lateral Abdominal Distention history of HCV infection. * US abdomen: no ascites * Bowel regimen ordered * follow up with GI outpatient for harvoni tx * PO omeprazole 40 mg daily Opiate dependence * continue methadone 70 mg daily depression Patient reports increased symptoms of depression, he has stopped taking his Paxil. He would like to restart it after discharge. * psychiatry consult outpatient to evaluate for depression and restart him on medication Code Full code DVT Lovenox Problem List: 1. Opiate dependence 2. EtOH dependence 3. Depression 4. Diabetes 5. Alcohol withdrawal 6. Hepatitis C 7. Smoking 8. HTN (hypertension) Pain Ratin Pain Location: no pain Pain Goal: Pain 4 or less Pain Plan: mild pp Tomorrow's Labs & Rationales: CBC, BEP BRIANA MIRANDA,[place] 01/13/17 0944: Attending MD Review Statement Attending Statement Attending MD Statement: examined this patient, discuss w/resident/PA/KAPOK AND COTTON MACHINE OPERATOR, agreed w/resident/PA/[employer] COTTON MACHINE OPERATOR, reviewed EMR data (avail), discussed with nursing, amended to note Attending Assessment/Plan: She is seen and examined. Resting comfortably and not in acute distress. He is not agitated or tremulous. He is actually very calm was able to provide adequate history. He is hemodynamically stable. He reports that his last alcohol intake was yesterday. He came in to the hospital for detox. He also reports increased depression due to noncompliance with his Paxil, he would like to go back on this medication upon discharge. His CIWA has not been markedly elevated, he did have levels of 10 this morning. In the emergency room his max CIWA was 11. His last alcohol intake was in the dura presentation yesterday. Recommendations: -Continue current CIWA protocol. If patient is not requiring when necessary doses of Ativan may begin to taper down his standing dose. -Continue Protonix to oral. -Patient reports increased abdominal gas and weekend. Follow-up abdominal ultrasound. -He is scheduled to follow-up with the gastroenterology service as an outpatient for continued monitoring post therapy with Kianna for his hepatitis C. -Patient should be referred to psychiatry service as an outpatient for follow- up. -Continue his methadone which he uses for history of IV drug abuse.
[2017-01-13 08:30] LABS: ABSOLUTE BASOPHIL COUNT 0 /CUMM (0.0-0.2); ABSOLUTE EOSINOPHIL COUNT 0.1 /CUMM (0.0-0.7); ABSOLUTE GRANULOCYTE CT 2.1 /CUMM (1.4-6.5); ABSOLUTE LYMPH COUNT 1.3 /CUMM (1.2-3.4); ABSOLUTE MONOCYTE COUNT 0.3 /CUMM (0.10-0.60); BASOPHIL % 0.4 % (0.0-2.0); EOSINOPHIL % 2.7 % (0-5); GRANULOCYTE % 54.9 % (42.2-75.2); HEMATOCRIT 36.6 % (42-52); MEAN CORPUSCULAR HGB 31.5 PG (27.0-31.0); MEAN CORPUSCULAR HGB CONC 34.2 G/DL (33.0-37.0); MEAN PLATELET VOLUME 9.1 FL (7.4-10.4); PLATELET COUNT 110 /CUMM (130-400); RBC DISTRIBUTION WIDTH 13.9 % (11.5-14.5); RED BLOOD CELL CT 3.98 /CUMM (4.70-6.10); WHITE BLOOD CELL COUNT 3.8 /CUMM (4.8-10.8)
--- NOTE | 2017-01-13 11:37 | ULTRASOUND REPORT ---
EXAMINATION: US ABDOMEN COMPLETE CLINICAL INFORMATION: Increased abdominal girth over one month. 35 pound weight gain. Presumptive diagnosis of ascites and liver cirrhosis. History of hepatitis C. COMPARISON: Abdominal ultrasound dated 01/06/2016 and 08/15/2014. TECHNIQUE: Real-time imaging of the abdominal viscera. FINDINGS: PANCREAS: Completely obscured by overlying bowel gas. ABDOMINAL AORTA / INFERIOR VENA CAVA: Completely obscured by overlying bowel gas. LIVER: Poorly visualized and diffusely heterogeneous and echogenic in texture limiting sound beam penetration. Parenchymal detail is nondiagnostic. Even the liver size and contour are poorly assessed. No definite intrahepatic ductal dilatation seen. GALLBLADDER: There are several tiny layering gallstones seen within the gallbladder associated posterior acoustic shadowing. The gallbladder is otherwise unremarkable with no wall thickening or pericholecystic fluid seen. COMMON BILE DUCT: Poorly visualized but grossly normal in caliber measuring 0.6 cm in diameter. RIGHT KIDNEY: Suboptimally visualized but without focal finding. No hydronephrosis. No renal calculi or focal parenchymal lesions. The kidney measures 12.6 cm in maximum dimension. LEFT KIDNEY: Normal. No hydronephrosis. No renal calculi or focal parenchymal lesions. The kidney measures 11.6 cm in maximum dimension. SPLEEN: Enlarged, measuring 14.5 cm longitudinally. FREE FLUID: None. IMPRESSION: 1. Essentially nondiagnostic evaluation of the liver. Sound beam penetration limited by diffusely increased echotexture of the liver, consistent with infiltrative process, such as hepatic steatosis or other liver disease. 2. Splenomegaly. 3. No ascites. 4. Cholelithiasis with no evidence of cholecystitis or biliary obstruction. 5. Pancreas obscured by overlying bowel gas.
--- NOTE | 2017-01-13 15:28 | RADIOLOGY REPORT ---
EXAMINATION: XR CHEST CLINICAL INFORMATION: Aspiration pneumonia. Intermittent episodes of productive cough yielding greenish material. COMPARISON: None TECHNIQUE: 2 views of the chest were obtained. FINDINGS: Trace rotation to the right. The cardiac size is within normal limits. There is no mediastinal or hilar mass. The vasculature, lungs and visualized pleural margins are within normal limits. No focal bony lesions. IMPRESSION: No acute chest disease. Specifically no radiographic evidence of aspiration pneumonia.
[2017-01-14] VITALS (16 sets, daily range): BP systolic 130–168; BP diastolic 80–110
[2017-01-14 08:04] LABS: ABSOLUTE BASOPHIL COUNT 0 /CUMM (0.0-0.2); ABSOLUTE EOSINOPHIL COUNT 0.1 /CUMM (0.0-0.7); ABSOLUTE GRANULOCYTE CT 4.4 /CUMM (1.4-6.5); HEMATOCRIT 38.1 % (42-52)
[2017-01-14 08:18] LABS: ABSOLUTE MONOCYTE COUNT 0.5 /CUMM (0.10-0.60); BASOPHIL % 0.2 % (0.0-2.0); EOSINOPHIL % 1.7 % (0-5); GRANULOCYTE % 73.4 % (42.2-75.2); MEAN CORPUSCULAR HGB 31.3 PG (27.0-31.0); MEAN CORPUSCULAR HGB CONC 33.8 G/DL (33.0-37.0); MEAN CORPUSCULAR VOLUME 92.7 FL (80.0-94.0); MEAN PLATELET VOLUME 9.2 FL (7.4-10.4); PLATELET COUNT 122 /CUMM (130-400); RED BLOOD CELL CT 4.12 /CUMM (4.70-6.10)
--- NOTE | 2017-01-14 09:36 | PN- Housestaff ---
ABBE MIRANDA,XU 01/14/17 0936: Subjective Follow-up For: Alcohol withdrawal Subjective: Patient seen and examined bedside. Patient still endorses abdominal distention states that his pain is much improved. He denies any fever chill abdominal pain , nausea, vomiting, chest pain, palpitation. No acute overnight event reported by nursing staff. Review of Systems Constitutional: Reports: no symptoms. Objective Last 24 Hrs of Vital Signs/I&O Vital Signs Date Time Temp Pulse Resp B/P Pulse O2 O2 Flow FiO2 Ox Delivery Rate 01/14 2309 99.8 98 20 158/100 93 Room Air 01/14 2200 99.8 98 18 158/100 01/14 2100 98.6 101 18 164/110 01/14 2014 98.6 101 20 164/110 94 Room Air 01/14 2000 98.6 101 18 164/110 01/14 1816 100.0 100 20 152/92 93 Room Air 01/14 1415 98.2 100 20 148/80 91 01/14 1300 100 18 148/96 01/14 1133 98.0 66 20 140/82 96 01/14 1000 98 18 154/96 01/14 0953 98 154/96 01/14 0914 100 168/98 01/14 0913 100 168/98 01/14 0900 100 168/98 01/14 0732 98.8 73 20 142/100 95 Room Air 01/14 0223 98.6 67 20 130/90 94 Room Air 01/14 0200 98.6 67 20 130/90 01/14 0000 99.1 66 20 144/100 Intake & Output 01/14 1600 01/14 0800 01/14 0000 Intake Total 1200 1160 1280 Output Total 1000 1500 325 Balance 200 -340 955 Intake, IV 600 800 800 Intake, Oral 600 360 480 Number 1 Bowel Movements Output, Urine 1000 1500 325 Physical Exam General Appearance: Alert, Oriented X3, Cooperative Other Physical Findings: General Appearance: Alert, Oriented X3, Cooperative, No Acute Distress Skin: No Rashes, No Breakdown, No Significant Lesion HEENT: Atraumatic, EOMI Neck: Supple Cardiovascular: Normal S1, Normal S2, No Murmurs Lungs: Normal Air Movement Abdomen: Normal Bowel Sounds, Soft (guarding present), mildly tender on the epigaster Neurological: Normal Speech Extremities: No Edema, Normal Pulses Vascular: Pulses Symmetrical Assessment/Plan Assessment: This is a 51 year old gentleman with extensive medical history including IVDU ( now on methadone) and hepatitis C as well as extensive depression and alcohol use who presented to the emergency department requesting alcohol detoxification. Alcohol withdrawal * Ativan per CIWA protocol. Ativan scheduled IV 2 mg every 6, taper according to CIWA scores * folic acid and thiamine * gentle hydration * social consult on sunday Diabetes Patient is normally on metformin at home. * now on sliding scale insulin. * accuchecks before meals and at bedtime Hypertension * Continue home medications of amlodipine and lisinopril Chronic cough denies SOB, reports sputum production * CXR PA and lateral Abdominal Distention history of HCV infection. * US abdomen: no ascites * Bowel regimen ordered * follow up with GI outpatient for harvoni tx * PO omeprazole 40 mg daily Opiate dependence * continue methadone 70 mg daily depression Patient reports increased symptoms of depression, he has stopped taking his Paxil. He would like to restart it after discharge. * psychiatry consult outpatient to evaluate for depression and restart him on medication Code Full code DVT Lovenox Problem List: 1. EtOH dependence Pain Ratin Pain Location: NONE Pain Goal: Remain pain free Pain Plan: PER PAIN PATHWAY Tomorrow's Labs & Rationales: SARAH WARREN MD,[place] 01/14/17 1138: Attending MD Review Statement Attending Statement Attending MD Statement: examined this patient, discuss w/resident/PA/CAKE CUTTER MACHINE, agreed w/resident/PA/CAKE CUTTER MACHINE, reviewed EMR data (avail), discussed with nursing, discussed with case mgmt, amended to note Attending Assessment/Plan: Patient seen and examined. Sitting up in bed. He is not agitated however he is visibly tremulous. His CIWA has been high. So far overnight and this morning he has received a total of 6 mg of IV Ativan in addition to his standing dose. He is not yet ready for taper of his benzodiazepine therapy. We will continue him on his current regimen. Transaminitis is improving. Liver sonogram shows evidence consistent with hepatic steatosis. His blood glucose levels are currently controlled with sliding scale coverage. Recommendations: -Continue current benzodiazepine regimen without tapering today. -Continue IV hydration. -Continue methadone for chronic pain management. -distillery worker consultation in the morning.
[2017-01-15] VITALS (10 sets, daily range): BP systolic 130–166; BP diastolic 70–100
--- NOTE | 2017-01-15 07:06 | PN- Housestaff ---
Subjective Follow-up For: Alcohol withdrawal Abdominal pain and constipation Coughing Subjective: I saw and examined the patient this am, he reports bloating and constipation, last Bowel movement was on Sunday. He also reports feeling metalic taste every now an then specially happened overnight and he asked the nursing to come and give him ativan, he feels it is the same feeling he had before had seizures 10 years ago. He also reports being depressed and start to think when he gets alone. Review of Systems Constitutional: Denies: chills, fever, malaise. EENTM: Reports: no symptoms. Cardiovascular: Denies: chest pain, palpitations. Respiratory: Reports: short of breath (shallow because of the cough). Denies: cough. Gastrointestinal: Reports: abdominal pain (generalized), bloating, constipation. Denies: nausea, vomiting. Genitourinary: Reports: no symptoms. Musculoskeletal: Reports: back pain (pain in the back and shoulders). Skin: Reports: no symptoms. Objective Last 24 Hrs of Vital Signs/I&O Vital Signs Date Time Temp Pulse Resp B/P Pulse O2 O2 Flow FiO2 Ox Delivery Rate 01/15 0841 140/100 01/15 0841 140/100 01/15 0614 98.8 78 20 140/100 92 Room Air 01/15 0609 100.4 01/15 0600 100.4 98 18 140/100 01/15 0537 100.4 01/15 0400 99.8 98 18 140/100 01/15 0200 99.8 98 18 140/100 01/15 0000 99.8 98 18 140/100 01/14 2309 99.8 98 20 158/100 93 Room Air 01/14 2200 99.8 98 18 158/100 01/14 2100 98.6 101 18 164/110 01/14 2014 98.6 101 20 164/110 94 Room Air 01/14 2000 98.6 101 18 164/110 01/14 1816 100.0 100 20 152/92 93 Room Air 01/14 1415 98.2 100 20 148/80 91 01/14 1300 100 18 148/96 01/14 1133 98.0 66 20 140/82 96 01/14 1000 98 18 154/96 01/14 0953 98 154/96 01/14 0914 100 168/98 01/14 0913 100 168/98 01/14 0900 100 168/98 Intake & Output 01/15 1600 01/15 0800 01/15 0000 Intake Total 50 240 Output Total Balance 50 240 Intake, Oral 50 240 Physical Exam General Appearance: Alert, Oriented X3, Cooperative, No Acute Distress Skin: No Rashes, No Breakdown HEENT: Atraumatic, EOMI Neck: Supple Cardiovascular: Normal S1, Normal S2, No Murmurs Lungs: decreased breath sounds, no wheezing or rhonchi Abdomen: generalized tenderness, distended, increased bowel sounds. Neurological: Normal Speech, Normal Tone Extremities: No Cyanosis, No Edema, Normal Pulses Vascular: Pulses Symmetrical Current Medications: Current Medications Sig/Marshall Start time Last Medication Dose Route Stop Time Status Admin Acetaminophen 500 MG ONCE ONE 01/15 0430 DC 01/15 PO 01/15 0431 0537 Amlodipine Besylate 5 MG DAILY 01/13 1000 AC 01/15 PO 0841 Bisacodyl 10 MG ONCE ONE 01/15 0900 AC OH 01/15 0901 Bisacodyl 10 MG ONCE ONE 01/14 1800 DC 01/14 OH 01/14 1801 1814 Enoxaparin Sodium 40 MG DAILY 01/13 1000 AC 01/15 SC 0842 Insulin Aspart 0 TIDAC 01/13 0800 AC 01/14 SC 1813 Lisinopril 40 MG DAILY 01/12 2345 AC 01/15 PO 0841 Lorazepam 2 MG Q6 01/12 2359 AC 01/15 PO 0512 Lorazepam 0 Q1P PRN 01/12 2345 AC 01/15 IV 0841 Melatonin 5 MG ONCE ONE 01/14 2030 DC 01/14 PO 01/14 2031 2050 Methadone HCl 70 MG DAILY 01/13 1000 AC 01/15 PO 0512 Nicotine 21 MG DAILY 01/13 1000 AC 01/15 TOP 0515 Omeprazole 40 MG DAILY AC 01/14 0700 AC 01/15 PO 0511 Ondansetron HCl 4 MG ONCE ONE 01/14 0915 DC 01/14 IV 01/14 0916 1141 Polyethylene Glycol 17 GM DAILY 01/13 1358 AC 01/15 PO 0842 Senna 187 MG AT BEDTIME 01/13 2200 AC 01/14 PO 2009 Sodium Chloride 1,000 ML Q13H 01/14 1045 DC 01/14 IV 1143 Sodium Chloride 1,000 ML Q10H 01/13 0145 VA 01/14 IV 0805 Last 24 Hrs of Lab/Diallo Results Last 24 Hrs of Labs/Mics: Laboratory Tests 01/15/17 0640: Anion Gap 14, Estimated GFR > 60, BUN/Creatinine Ratio 13.8, Total Bilirubin 1.2 , Direct Bilirubin 0.5 H, AST 37, ALT 56, Alkaline Phosphatase 62, Total Protein 8.3 H, Albumin 4.6, CBC w Diff Pending, WBC Pending, RBC Pending, Hgb Pending, Hct Pending, MCV Pending, MCH Pending, RDW Pending, Plt Count Pending, MPV Pending, PUBS MCHC Pending Assessment/Plan Assessment: This is a 51 year old gentleman with extensive medical history including IVDU ( now on methadone) and hepatitis C as well as extensive depression and alcohol use who presented to the emergency department requesting alcohol detoxification. Alcohol withdrawal Today patient reported aura (metal tasting overnight, similar to what he had experienced 10 years ago when he had a seizure, he called the nurse and they gave him ativan) * switched ativan to librium 50 mg Q6 PO * folic acid and thiamine, Multi-vitamins * social consult * refer to psych outpatient Chronic cough - stable denies SOB, reports sputum production CXR PA and lateral: no acute disease Saturating in RA * consider TRC nebs with worsening cough Abdominal Distention history of HCV infection. * US abdomen: no ascites * Bowel regimen ordered, added suppository * follow up with GI outpatient for trinity tx * PO omeprazole 40 mg daily Diabetes Patient is normally on metformin at home. * now on sliding scale insulin. * accuchecks before meals and at bedtime Hypertension * Continue home medications of amlodipine and lisinopril Opiate dependence * continue methadone 70 mg daily depression Patient reports increased symptoms of depression, he has stopped taking his Paxil. He would like to restart it after discharge. * psychiatry consult placed for today * follow up with psych outpatient for treatment of depression Code Full code DVT Lovenox Problem List: 1. HTN (hypertension) 2. Alcohol withdrawal 3. Diabetes 4. Depression 5. Opiate dependence 6. EtOH dependence 7. Hepatitis C 8. Smoking Pain Ratin Pain Location: currently no pain, has discomfort in abdomen Pain Goal: Pain 4 or less Pain Plan: mild pp Tomorrow's Labs & Rationales: LFT (transaminitis), CBC (leukocytosis, fever), BEP and Mg (monitor electrolytes )
[2017-01-15 08:13] LABS: ABSOLUTE BASOPHIL COUNT 0 /CUMM (0.0-0.2); ABSOLUTE EOSINOPHIL COUNT 0.1 /CUMM (0.0-0.7); ABSOLUTE MONOCYTE COUNT 0.7 /CUMM (0.10-0.60); BASOPHIL % 0.2 % (0.0-2.0); MEAN CORPUSCULAR VOLUME 93.1 FL (80.0-94.0)
[2017-01-15 08:51] LABS: ABSOLUTE GRANULOCYTE CT 7.2 /CUMM (1.4-6.5); ABSOLUTE LYMPH COUNT 1.4 /CUMM (1.2-3.4); EOSINOPHIL % 1.2 % (0-5); GRANULOCYTE % 76.1 % (42.2-75.2); MEAN CORPUSCULAR HGB 31.5 PG (27.0-31.0); MEAN CORPUSCULAR HGB CONC 33.8 G/DL (33.0-37.0); MEAN PLATELET VOLUME 9.1 FL (7.4-10.4); PLATELET COUNT 152 /CUMM (130-400); RBC DISTRIBUTION WIDTH 13.8 % (11.5-14.5)
[2017-01-15 09:01] LABS: WHITE BLOOD CELL COUNT 9.4 /CUMM (4.8-10.8)
--- NOTE | 2017-01-15 16:18 | PN- Att Addend ---
Attending MD Review Statement Attending Statement Attending MD Statement: examined this patient, discuss w/resident/PA/HYDRAULIC PLUMBER HELPER, agreed w/resident/PA/HYDRAULIC PLUMBER HELPER, reviewed EMR data (avail), discussed w/nursing, discussed w/ case mgmt Attending Assessment/Plan: Laboratory Tests 01/15/17 0640: Anion Gap 14, Estimated GFR > 60, BUN/Creatinine Ratio 13.8, Total Bilirubin 1.2 , Direct Bilirubin 0.5 H, AST 37, ALT 56, Alkaline Phosphatase 62, Total Protein 8.3 H, Albumin 4.6, CBC w Diff NO MAN DIFF REQ, RBC 4.30 L, MCV 93.1, MCH 31.5 H, RDW 13.8, MPV 9.1, Gran % 76.1 H, Lymphocytes % 14.9 L, Monocytes % 7.6, Eosinophils % 1.2, Basophils % 0.2, Absolute Granulocytes 7.2 H, Absolute Lymphocytes 1.4, Absolute Monocytes 0.7 H, Absolute Eosinophils 0.1, Absolute Basophils 0, PUBS MCHC 33.8 Vital Signs Date Time Temp Pulse Resp B/P Pulse O2 O2 Flow FiO2 Ox Delivery Rate 01/15 1417 98.2 90 20 130/70 98 01/15 1050 99.0 88 18 166/94 01/15 0900 99.0 88 18 160/100 01/15 0841 140/100 01/15 0841 140/100 01/15 0614 98.8 78 20 140/100 92 Room Air 01/15 0609 100.4 01/15 0600 100.4 98 18 140/100 01/15 0537 100.4 01/15 0400 99.8 98 18 140/100 01/15 0200 99.8 98 18 140/100 01/15 0000 99.8 98 18 140/100 01/14 2309 99.8 98 20 158/100 93 Room Air 01/14 2200 99.8 98 18 158/100 01/14 2100 98.6 101 18 164/110 01/14 2014 98.6 101 20 164/110 94 Room Air 01/14 2000 98.6 101 18 164/110 01/14 1816 100.0 100 20 152/92 93 Room Air 51 year old male with past medical history including IVDU (now on methadone), DM , HTN, and hepatitis C , depression and alcohol use who presented to the emergency department requesting alcohol detoxification. Patient has been drinking heavily for the last 13 months and also is a current smoker. Overnight patient had fever of 100.4 and his CIWA score this morning was high at 23. Patient feels today that his abdominal distention is better an ultrasound done during this hospital stay did not show any ascites. Plan to continue the patient on [place] protocol and start him on stool softeners to help with constipation. Continue with the methadone for history of heroin abuse. Patient is currently on 70 mg of methadone.
[2017-01-16 04:00] VITALS: BP 118/70
[2017-01-16 04:03] VITALS: BP 118/70
--- NOTE | 2017-01-16 07:14 | PN- Housestaff ---
CHRISTA MIRANDA,[facility] 01/16/17 0713: Subjective Follow-up For: Alcohol withdrawal Abdominal pain and constipation Coughing Subjective: I saw and examined the patient this am, he reports waking up several times during the night to go to the bathroom for urination, also reports still constipated despite the suppository dulcolax, reports he has been walking around on the floor without difficulty, denies dizziness. Feels he is generally weak and feels 'weird'. denies chest pain or SOB, reports sporadic coughs. Patient reports tremor has decreased, denies anxiety at the moment. Patient attributes the constipation to methadone pill and states he takes the liquid at home, which he believes has some stool softner in it. Review of Systems Constitutional: Reports: weakness. Denies: chills, fever. EENTM: Reports: no symptoms. Cardiovascular: Denies: chest pain, palpitations, peripheral edema. Respiratory: Reports: cough, sputum production. Denies: short of breath, wheezing. Gastrointestinal: Reports: bloating, constipation. Denies: abdominal pain, diarrhea, nausea, vomiting. Genitourinary: Reports: no symptoms. Musculoskeletal: Reports: no symptoms. Skin: Reports: no symptoms. Objective Last 24 Hrs of Vital Signs/I&O Vital Signs Date Time Temp Pulse Resp B/P Pulse O2 O2 Flow FiO2 Ox Delivery Rate 01/16 0819 116/80 01/16 0403 99.6 75 20 118/70 97 Room Air 01/16 0400 99.6 75 20 118/70 01/15 2330 100.4 89 20 148/74 93 Room Air 01/15 2200 100.4 89 20 148/74 01/15 1417 98.2 90 20 130/70 98 01/15 1050 99.0 88 18 166/94 01/15 0900 99.0 88 18 160/100 Intake & Output 01/16 1600 01/16 0800 01/16 0000 Intake Total 260 500 Output Total Balance 260 500 Intake, IV 20 20 Intake, Oral 240 480 Physical Exam General Appearance: Alert, Oriented X3, Cooperative, No Acute Distress Skin: No Rashes, No Significant Lesion HEENT: Atraumatic, EOMI Neck: Supple Cardiovascular: Regular Rate, Normal S1, Normal S2, No Murmurs Lungs: Clear to Auscultation, Normal Air Movement Abdomen: distended, nontender Neurological: Normal Gait, Normal Speech, Normal Tone Extremities: No Cyanosis, No Edema, Normal Pulses Vascular: Normal Pulses, Pulses Symmetrical Current Medications: Current Medications Sig/Marshall Start time Last Medication Dose Route Stop Time Status Admin Al Hydroxide/Mg 30 ML ONCE ONE 01/15 2300 DC 01/15 Hydroxide PO 01/15 2301 2252 Al Hydroxide/Mg 30 ML .STK-MED ONE 01/15 2134 DC Hydroxide PO 01/15 213 Amlodipine Besylate 5 MG DAILY 01/13 1000 AC 01/16 PO 0819 Bisacodyl 10 MG ONCE ONE 01/15 0900 DC 01/15 KS 01/15 0901 0912 Chlordiazepoxide HCl 50 MG BID 01/16 1800 AC PO Chlordiazepoxide HCl 50 MG Q6 01/15 1100 DC 01/16 PO 0606 Enoxaparin Sodium 40 MG DAILY 01/13 1000 AC 01/16 SC 0820 Insulin Aspart 0 TIDAC 01/13 0800 AC 01/16 SC 0822 Lisinopril 40 MG DAILY 01/12 2345 AC 01/16 PO 0819 Lorazepam 2 MG Q6 01/12 2359 DC 01/15 PO 0512 Lorazepam 0 Q1P PRN 01/12 2345 AC 01/15 IV 2137 Methadone HCl 70 MG DAILY 01/13 1000 AC 01/16 PO 0608 Nicotine 21 MG DAILY 01/13 1000 AC 01/16 TOP 0822 Omeprazole 40 MG DAILY AC 01/14 0700 AC 01/16 PO 0606 Polyethylene Glycol 17 GM DAILY 01/13 1358 AC 01/16 PO 0820 Senna 187 MG AT BEDTIME 01/13 2200 AC 01/15 PO 2137 Last 24 Hrs of Lab/Diallo Results Last 24 Hrs of Labs/Mics: Laboratory Tests 01/16/17 0730: Sodium Pending, Potassium Pending, Chloride Pending, Carbon Dioxide Pending, Anion Gap Pending, BUN Pending, Creatinine Pending, BUN/Creatinine Ratio Pending , Magnesium Pending, Total Bilirubin Pending, Direct Bilirubin Pending, AST Pending, ALT Pending, Alkaline Phosphatase Pending, Total Protein Pending, Albumin Pending, CBC w Diff Pending, WBC Pending, RBC Pending, Hgb Pending, Hct Pending, MCV Pending, MCH Pending, RDW Pending, Plt Count Pending, MPV Pending, PUBS MCHC Pending Assessment/Plan Assessment: This is a 51 year old gentleman with extensive medical history including IVDU ( now on methadone) and hepatitis C as well as extensive depression and alcohol use who presented to the emergency department requesting alcohol detoxification. Alcohol withdrawal Yesterday patient reported aura (metal tasting overnight, similar to what he had experienced 10 years ago when he had a seizure, he called the nurse and they gave him ativan). today denies this symptom. Patient also has had episodes of low grade fever (100.4) one time last night at 11 pm and also in the morning yesterday, which could be explained by the alcohol withdrawal as it corresponds with his high CIWA scores. UA is not suggesting infections and CXR was unremarkable. he does not have leukocytosis. * switched ativan to librium 50 mg Q6 PO yesterday, decreased to 25 mg Q6 today * continue folic acid and thiamine, Multi-vitamins * social consult in place * refer to psych outpatient, patient already talked to his psychiatrist and will f/u with him outpatient Chronic cough - stable denies SOB, reports sputum production CXR PA and lateral: no acute disease Saturating in RA * consider TRC nebs with worsening cough Abdominal Distention - most likely constipation history of HCV infection. * US abdomen: no ascites * Bowel regimen ordered, added suppository, still has not had bowel movement ( has been 4 days since the last bowel movement), added lactulose TID today * follow up with GI outpatient, per patient he received harvoni and completed treatment end of July, patient was supposed to follow up with Dr. Munguia in November to check viral load but he decided not to follow up as he had started back on drinking in october. * PO omeprazole 40 mg daily Diabetes Patient is normally on metformin at home. * now on sliding scale insulin. * accuchecks before meals and at bedtime Hypertension * Continue home medications of amlodipine and lisinopril Opiate dependence * continue methadone 70 mg daily depression Patient reports increased symptoms of depression, he has stopped taking his Paxil. He would like to restart it after discharge. * psychiatry consult placed for today * follow up with psych outpatient for treatment of depression Code Full code DVT Lovenox Problem List: 1. EtOH dependence 2. Opiate dependence 3. Depression 4. Diabetes 5. Alcohol withdrawal 6. HTN (hypertension) 7. Hepatitis C 8. Smoking Pain Ratin Pain Location: no pain Pain Goal: Pain 4 or less Pain Plan: no pain Tomorrow's Labs & Rationales: none ABA CRAWLEY 02/09/17 1514: Attending MD Review Statement Attending Statement Attending MD Statement: examined this patient, discuss w/resident/PA/MANAGER CHILD, agreed w/resident/PA/MANAGER CHILD, reviewed EMR data (avail), discussed with nursing, discussed with case mgmt
[2017-01-16 09:13] LABS: ABSOLUTE BASOPHIL COUNT 0 /CUMM (0.0-0.2); ABSOLUTE EOSINOPHIL COUNT 0.1 /CUMM (0.0-0.7); ABSOLUTE GRANULOCYTE CT 4.8 /CUMM (1.4-6.5); ABSOLUTE LYMPH COUNT 1.5 /CUMM (1.2-3.4); ABSOLUTE MONOCYTE COUNT 0.6 /CUMM (0.10-0.60); BASOPHIL % 0.4 % (0.0-2.0); EOSINOPHIL % 2.1 % (0-5); GRANULOCYTE % 67.6 % (42.2-75.2); HEMATOCRIT 35.2 % (42-52); MEAN CORPUSCULAR HGB 31.9 PG (27.0-31.0); MEAN CORPUSCULAR HGB CONC 34.4 G/DL (33.0-37.0); MEAN CORPUSCULAR VOLUME 92.8 FL (80.0-94.0); MEAN PLATELET VOLUME 8.8 FL (7.4-10.4); PLATELET COUNT 123 /CUMM (130-400); RBC DISTRIBUTION WIDTH 13.6 % (11.5-14.5); RED BLOOD CELL CT 3.79 /CUMM (4.70-6.10)
[2017-01-16 11:50] VITALS: BP 120/60
--- NOTE | 2017-01-16 14:20 | PN- Att Addend ---
Attending MD Review Statement Attending Statement Attending MD Statement: examined this patient, discuss w/resident/PA/CORRECTION WORKER, agreed w/resident/PA/CORRECTION WORKER, reviewed EMR data (avail), discussed w/nursing, discussed w/ case mgmt Attending Assessment/Plan: Laboratory Tests 01/16/17 0730: Anion Gap 10, Estimated GFR > 60, BUN/Creatinine Ratio 13.8, Magnesium 2.0, Total Bilirubin 0.9, Direct Bilirubin 0.5 H, AST 35, ALT 48, Alkaline Phosphatase 60, Total Protein 7.2, Albumin 4.0, CBC w Diff NO MAN DIFF REQ, RBC 3.79 L, MCV 92.8, MCH 31.9 H, RDW 13.6, MPV 8.8, Gran % 67.6, Lymphocytes % 21.0, Monocytes % 8.9, Eosinophils % 2.1, Basophils % 0.4, Absolute Granulocytes 4.8, Absolute Lymphocytes 1.5, Absolute Monocytes 0.6, Absolute Eosinophils 0.1, Absolute Basophils 0, PUBS MCHC 34.4 Vital Signs Date Time Temp Pulse Resp B/P Pulse O2 O2 Flow FiO2 Ox Delivery Rate 01/16 1150 98.7 80 20 120/60 95 01/16 0819 116/80 01/16 0403 99.6 75 20 118/70 97 Room Air 01/16 0400 99.6 75 20 118/70 01/15 2330 100.4 89 20 148/74 93 Room Air 01/15 2200 100.4 89 20 148/74 51 year old male with past medical history including IVDU (now on methadone), DM , HTN, and hepatitis C treated with Harvoni last summer 2015 and after that had undetected viral load , depression and alcohol use who presented to the emergency department requesting alcohol detoxification. Patient has been drinking heavily for the last 13 months and also is a current smoker. Overnight patient had fever of 100.4 and his CIWA score at time of fever was 9. Patient still has constipation Plan to continue the patient on CIWA protocol , decreased librium to 25mg q6h and start him on stool softeners to help with constipation- added lactulose prn. Continue with the methadone for history of heroin abuse. Patient is currently on 70 mg of methadone. d/w pt the care plan and again d/w him the improtance of quitting alcohol
[2017-01-16 14:29] VITALS: BP 145/80
[2017-01-16 18:17] VITALS: BP 144/94
[2017-01-16 22:20] VITALS: BP 132/80
[2017-01-17] VITALS (7 sets, daily range): BP systolic 128–230; BP diastolic 68–88
--- NOTE | 2017-01-17 07:13 | PN- Housestaff ---
CHRISTA MIRANDA,[facility] 01/17/17 0713: Subjective Follow-up For: Alcohol withdrawal Abdominal pain and constipation Subjective: Patient is alert and oriented, reports he could not sleep well last night due to anxiety. patient has had bowel movement yesterday and feels less constipated. denies abdominal pain, denies coughing or SOB. reports he want to follow up with [facility] after discharge. Review of Systems Constitutional: Denies: chills, fever, malaise, weakness. EENTM: Reports: no symptoms. Cardiovascular: Reports: no symptoms. Respiratory: Reports: no symptoms. Gastrointestinal: Reports: no symptoms. Genitourinary: Reports: no symptoms. Musculoskeletal: Reports: no symptoms. Skin: Reports: no symptoms. Neurological/Psychological: Reports: anxiety, depressed. Denies: headache, numbness, weakness. Hematologic/Endocrine: Reports: no symptoms. Objective Last 24 Hrs of Vital Signs/I&O Vital Signs Date Time Temp Pulse Resp B/P Pulse O2 O2 Flow FiO2 Ox Delivery Rate 01/17 1405 98.2 91 20 135/70 98 01/17 1118 98.0 88 20 130/68 98 01/17 0818 116/70 01/17 0818 116/70 01/17 0627 98.4 75 20 128/84 95 Room Air 01/17 0600 98.4 75 20 128/84 01/17 0200 98.5 63 20 142/88 01/17 0128 98.5 63 20 142/88 93 Room Air 01/17 0000 98.9 84 20 132/80 01/16 2220 98.9 84 20 132/80 94 Room Air 01/16 1817 99.2 86 20 144/94 92 Room Air Intake & Output 01/17 1600 01/17 0800 01/17 0000 Intake Total 800 500 300 Output Total 400 Balance 800 100 300 Intake, Oral 800 500 300 Output, Urine 400 Patient 113.852 kg Weight Physical Exam General Appearance: Alert, Oriented X3, Cooperative, No Acute Distress Skin: No Rashes, No Significant Lesion HEENT: Atraumatic, EOMI Neck: Supple Cardiovascular: Regular Rate, Normal S1, Normal S2, No Murmurs Lungs: Clear to Auscultation, Normal Air Movement Abdomen: Normal Bowel Sounds, Soft, No Tenderness Neurological: Normal Gait, Normal Speech, Strength at 5/5 X4 Ext, Normal Tone Extremities: No Cyanosis, No Edema, Normal Pulses, No Tenderness/Swelling Current Medications: Current Medications Sig/Marshall Start time Last Medication Dose Route Stop Time Status Admin Amlodipine Besylate 5 MG DAILY 01/13 1000 DCD 01/17 PO 0818 Chlordiazepoxide HCl 25 MG Q12 01/17 1000 DCD 01/17 PO 0818 Chlordiazepoxide HCl 25 MG BID 01/16 1800 DC 01/16 PO 2123 Enoxaparin Sodium 40 MG DAILY 01/13 1000 DCD 01/16 SC 0820 Insulin Aspart 0 TIDAC 01/13 0800 DCD 01/17 SC 1305 Lactulose 20 GM TID PRN 01/16 1130 DCD 01/16 PO 1617 Lisinopril 40 MG DAILY 01/12 2345 DCD 01/17 PO 0818 Lorazepam 0 Q1P PRN 01/12 2345 DCD 01/17 IV 0627 Melatonin 5 MG AT BEDTIME 01/16 2315 DCD 01/16 PO 2314 Methadone HCl 70 MG 0600 01/17 0745 DCD 01/17 PO 0818 Methadone HCl 70 MG DAILY AC 01/17 0728 DC PO Methadone HCl 70 MG DAILY 01/13 1000 DC 01/16 PO 0608 Nicotine 21 MG DAILY 01/13 1000 DCD 01/17 TOP 0819 Omeprazole 40 MG DAILY AC 01/14 0700 DCD 01/17 PO 0615 Patient Medication 1 ED .STK-MED ONE 01/17 1340 ME Teaching ED 01/17 1341 Polyethylene Glycol 17 GM DAILY 01/13 1358 DCD 01/16 PO 0820 Senna 187 MG AT BEDTIME 01/13 2200 DCD 01/16 PO 2123 Assessment/Plan Assessment: This is a 51 year old gentleman with extensive medical history including IVDU ( now on methadone) and hepatitis C as well as extensive depression and alcohol use who presented to the emergency department requesting alcohol detoxification. Alcohol withdrawal Decreased to 25 mg Q6 yesterday, he is getting discharged today. * will take one dose 25 mg this evening, one dose 25 mg tomorrow morning and one dose 25 mg the nect day and stop. * social consult placed and patient will follow IOP ([facility] * referred to psych outpatient, patient will talk to his psychiatrist and will f /u with him outpatient Chronic cough - stable denies SOB, reports sputum production CXR PA and lateral: no acute disease Saturating in RA * consider TRC nebs with worsening cough Abdominal Distention, most likely constipation - resolved history of HCV infection. * US abdomen: no ascites * Bowel regimen ordered, added suppository, still has not had bowel movement ( has been 4 days since the last bowel movement), added lactulose TID yesterday and helped with constipation * follow up with GI outpatient, per patient he received harvoni and completed treatment end of July, patient was supposed to follow up with Dr. Munguia in November to check viral load but he decided not to follow up as he had started back on drinking in october. * PO omeprazole 40 mg daily Diabetes Patient is normally on metformin at home. * now on sliding scale insulin. * accuchecks before meals and at bedtime Hypertension * Continue home medications of amlodipine and lisinopril Opiate dependence * continue methadone 70 mg daily depression Patient reports increased symptoms of depression, he has stopped taking his Paxil. He would like to restart it after discharge. * psychiatry consult placed for today * follow up with psych outpatient for treatment of depression Code Full code DVT Lovenox Problem List: 1. HTN (hypertension) 2. Alcohol withdrawal 3. Diabetes 4. Depression 5. Opiate dependence 6. EtOH dependence Pain Ratin Pain Location: no pain Pain Goal: Pain 4 or less Pain Plan: no pain Tomorrow's Labs & Rationales: none LEIA MIRANDA,[facility] 01/17/17 1320: Attending MD Review Statement Attending Statement Attending MD Statement: examined this patient, discuss w/resident/PA/WAREHOUSE SHIFT SUPERVISOR, agreed w/resident/PA/WAREHOUSE SHIFT SUPERVISOR, reviewed EMR data (avail) Attending Assessment/Plan: Patient appears anxious and had difficulty sleeping last night. Otherwise his vital signs have been stable. His CIWA score have been relatively low. He denies any other complaints. Chest exam is clear abdomen soft nontender. He has a mild tremor of his hands. No new labs were done today. Assessment plan Patient can be discharged home on Librium taper. He can resume his Xanax. Patient's patient to switch his psychiatrist. We will give him 7 days supply of Xanax.
--- NOTE | 2017-01-17 11:51 | Patient Discharge Instructions ---
Discharge Instructions General Discharge Information You were seen/treated for: alcohol withdrawal constipation Special Instructions: 1. please follow up with your PCP within a week of discharge 2. please follow up with Dr. Mathis, psychiatry within a week of discharge 3. please take medications as instructed and follow up with IOP ([facility]) 4. please come back to the ED if symptoms recur Acute Coronary Syndrome Inclusion Criteria At DC or during hospital stay patient has or had the following: ACS DIAGNOSIS No Discharge Core Measures Meds if any: Prescribed or Continued at Discharge Meds if any: NOT Prescribed or Continued at Discharge Congestive Heart Failure Inclusion Criteria At DC or during hospital stay patient has or had the following: CHF DIAGNOSIS No Discharge Core Measures Meds if any: Prescribed or Continued at Discharge Meds if any: NOT Prescribed or Continued at Discharge Cerebrovascular accident Inclusion Criteria At DC or during hospital stay patient has or had the following: CVA/TIA Diagnosis No Discharge Core Measures Meds if any: Prescribed or Continued at Discharge Meds if any: NOT Prescribed or Continued at Discharge Venous thromboembolism Inclusion Criteria VTE Diagnosis No VTE Type NONE VTE Confirmed by (Test) NONE Discharge Core Measures - Per Current guidelines, there needs to be overlap - treatment for the first 5 days of Warfarin therapy. - If discharged on Warfarin prior to 5 days of - overlap therapy, the patient will need to be - assessed for post discharge needs including - *Post discharge parental anticoagulation - *Warfarin and/or parental anticoagulation education - *Follow up date to check INR post discharge At least 5 days overlap therapy as Inpatient No Meds if any: Prescribed or Continued at Discharge Note: Overlap Therapy is Warfarin and Anticoagulant Meds if any: NOT Prescribed or Continued at Discharge
[2017-01-17] MEDS ORDERED: CHLORDIAZEPOXID25 M3 PO ×2 (11:55→13:54)
[2017-01-17] MEDS ORDERED: XANAX0.5 M1 PO ×2 (11:56→13:15)
--- NOTE | 2017-01-17 13:59 | Discharge Summary ---
Visit Information Visit Dates Admission Date: 01/12/17 Discharge Date: 01/17/17 Hospital Course Course Attending Physician: MISBAH MIRANDA,ABA Perera Primary Care Physician: SIOMARA RUSH DO [facility] Course: Mr Dash is a 51-year-old [place] gentleman with a PMH of HTN, DM , GERD, tobacco dependence (1 PPD for 20 years), hep C recently completed Harvoni, depression, EtOH dependence who presented for alcohol detox. The patient mentioned that he had been abstinent for over 13 months, completed hep C treatment 5 months ago, stopped taking his antidepressants approximately 3 months ago as he was feeling well. It was around this time when he started drinking again approximately a fifth of hard liquor daily with a noticeable increase in quantity over the last 2 weeks. On arrival he complained of generalized body tremors, occasional visual hallucinations "shadows", 2 day duration of nonbloody nausea and vomiting, intermittent morrison stools, productive cough with green sputum and a 35 pound weight gain mainly around his abdominal region. VS on admission: BP 163/93, HR 90, RR 20, SPO2 94% on RA, T 97.0 Physical exam: AAO, in no acute distress, slightly tremulous. RRR, normal S1/ S2. Lungs CTA BL. Diminished bowel sounds, significantly distended abdomen, negative thrill, evidence of caput medusa. Pertinent labs: WBC 5.9, H&H 13.9/41.1, platelets 151, sodium 141, potassium 4.1 , BUN/CR 17/0.8 AST/ALT: 74/76 Magnesium 1.5 The patient was admitted to general medicine for management of the following problems: 1. EtOH withdrawal 2. Elevated blood pressure 3. Hypomagnesemia 4. Depression 5. Abdominal distention 6. Tobacco dependence 7. Diabetes 8. Previous heroin abuse, currently on methadone HOSPITAL COURSE: 1. EtOH withdrawal * We started the patient on Ativan per CIWA protocol, banana bag 1, thiamine and folic acid supplementation. Due to persistent elevated scores, Librium was started on hospital day 3 and successfully tapered over his 5 day hospital course. There were no complications associated with alcohol detox during this hospital stay 2. Elevated blood pressure * Continued his home doses of lisinopril 40 and amlodipine 5 mg daily 3. Hypomagnesemia * Initial magnesia and 1.5 for which we supplemented with IV mag sulfate 1. Repeat magnesium WNL 2.0 4. Depression * The patient denied any suicidal, homicidal or depressive symptoms throughout the hospital course * Previously on paroxetine 40 mg daily which patient had stopped taking for more than 3 months. Advised the patient to follow-up with [facility] once detox is completed for recommendations with restarting this medication. Prior to discharge he denied any depressive symptoms 5. Abdominal distention * Dominant ultrasound: Nondiagnostic evaluation of the liver. Splenomegaly. No ascites present. Cholelithiasis with no evidence of cholecystitis or biliary obstruction * Started the patient on aggressive bowel regimen including MiraLAX, senna and Colace, promoted ambulation once stable with interval improvement in distention and regular return of bowel movements 6. Tobacco dependence * Withdrawal symptoms managed with 14 mg nicotine patch 7. Diabetes * Serial Accu-Cheks, low-dose insulin sliding scale with good control blood sugars throughout the hospital stay 8. Previous heroin use, currently on methadone * Continued on methadone 70 mg daily Allergies: Coded Allergies: NO KNOWN ALLERGIES (06/04/12) Significant Procedures: ADMISSION PSYCH CRISIS NOTES: Dictated by Price Olivera Patient reports he achieved sobriety after an inpatient psychiatric admission in 2013 - patient discharged from [facility] sucessfully and maintained by attending AA meetings w/ a sponsor. Patient also was motivated to maintain sobriety during the course of treatment for his hepatitis C infection with [facility] ([employer] Dr. Harpal Munguia) - pt. reports he is cured. Patient reports one seizure from alcohol withdrawal ~13 years ago. Patient relapsed ~ 2 1/2 months ago and cites the "holidays" and thoughts of his as triggers to relapse. Patient denies ever being treated with traditional psychotherapy or counseling after the sudden of his . Patient was incarcerated ~13 years ago. Patient reports drinking as much as 750 mL of alcohol per day. Patient urine toxicology screen reviewed - positive for methadone which is prescribed and administered by [facility] in [place], [place]. Patient is also prescribed Xanax for anxiety by Dr. Mathis. Pt. reports on a scale of 1-10 his depression is ~9. Pt. states anxiety is "through the roof." Patient denies any high risk factors (suicidal ideation, homicidal ideation, psychosis). Patient presents alert, euthymic, and oriented. He was observed to be sweating and reports a feeling of fullness in his abdomen. Patient identified positive supports including his son, a cousin, and extended family. Patient is currently an active patient of psychiatrist Dr. Mathis. Pt. does not meet criteria for an inpatient psychiatric admission. Spoke to patient's son, Noble Dash Jr. . Jr. Noble states the patient "needs help and I want him to get better." Noble reports the patient is depressed at times, but he does not have any concerns that the patient is suicidal. Noble Long reports the patient drinks every day and has increased the volume of his drinking since being laid off. Jr. oNble states that "he hopes his father gets the help he needs." Disposition Summary Disposition Principal Diagnosis: Alcohol withdrawal Additional Diagnosis: Hypomagnesemia Constipation Discharge Disposition: home or self care Discharge Instructions General Discharge Information Code Status: Full Code Patient's Diet: Regular diet Patient's Activity: As tolerated Follow-Up Instructions/Appts: Please follow-up with her PCP within one week of discharge. Please follow-up with [facility] for outpatient therapy and restarting antidepressant Advised to take all medications as directed Medications at Discharge Discharge Medications: Continue taking these medications: Metformin HCl (Metformin HCl) 500 MG TABLET 1 Tablet ORAL TWICE DAILY Comments: INSULIN GIVEN WHILE IN HOSPITAL, RESUME ORAL MEDICATIONS TONIGHT 01/17 Nicotine Polacrilex (Nicotine Lozenge) 4 MG LOZENGE 1 Lozenge ORAL As Directed as needed for SMOKING CESSATION Comments: NOT GIVEN WHILE IN HOSPITAL Methadone HCl (Methadone HCl) (Unknown Strength) TABLET Unknown Dose ORAL DAILY Comments: Last Taken: 01/17/17 Time: 8AM Paroxetine HCl (Paxil) 40 MG TABLET 1 Tablet ORAL DAILY Comments: NOT GIVEN WHILE IN HOSPITAL Lisinopril (Lisinopril) 40 MG TABLET 1 Tablet ORAL DAILY Comments: Last Taken: 01/17/17 Time: 8AM Pantoprazole Sodium (Pantoprazole Sodium) 40 MG TABLET.DR 1 Tablet ORAL DAILY Comments: Last Taken: 01/17/17 Time: 6AM PROTONIX GIVEN SUBSTITUTION WHILE IN HOSPITAL Amlodipine Besylate (Amlodipine Besylate) 5 MG TABLET 1 Tablet ORAL DAILY Qty = 30 Comments: Last Taken: 01/17/17 Time: 8AM Alprazolam (Xanax) 0.5 MG TABLET 1 Tablet ORAL TWICE DAILY as needed for ANXIETY Qty = 10 Comments: ATIVAN GIVEN WHILE IN HOSPITAL This prescription has been renewed Start taking the following new medications: Chlordiazepoxide HCl (Chlordiazepoxide HCl) 25 MG CAPSULE 25 Milligram ORAL DAILY Qty = 3 No Refills Instructions: PLEASE TAKE: 1 CAPSULE ON 01/17/17 AT BEDTIME 1 CAPSULE ON 01/18/17 IN THE MORNING 1 CAPSULE ON 01/19/17 IN THE MORNING THEN STOP Comments: Last Taken: 01/17/17 Time: 8AM Copies To: ASHTYN RUSH DO, MD,JEREMÍAS Attending MD Review Statement Documenting Attending: ABA CRAWLEY MD Other Findings: Agree with the above discharge plan.
== END 2017-01-17 14:37 | DRG 897 ==
LOC: CANRESERV → ENRESERVDT → ENRESERVTM → ERH 11:12 → 2NA 20:11 → ERHI 20:11 → 2NA 21:35
PROVIDERS: Ophthalmology; Physician Assistant; Student in an Organized Health Care Education/Training Program; ADMIT Internal Medicine
DX: F10.239 Alcohol dependence with withdrawal, unspecified (principal); F11.20 Opioid dependence, uncomplicated; E83.42 Hypomagnesemia; I10 Essential (primary) hypertension; E11.9 Type 2 diabetes mellitus without complications; Z79.84 Long term (current) use of oral hypoglycemic drugs; Y90.6 Blood alcohol level of 120-199 mg/100 ml; F17.210 Nicotine dependence, cigarettes, uncomplicated; F41.8 Other specified anxiety disorders; K59.00 Constipation, unspecified
CPT/HCPCS: 2NASP; 80307; 81003; 82436; 87070; 87086; 93005; 93010; G0463; G0480; J1650; J2405